=== PATIENT | male | born 1955 | race Caucasian/White ===

== ENCOUNTER 2017-02-07 03:35 | Emergency (ER) | payer MEDICAID ==
[~2017-02-07] VITALS: Ht 177.8 cm; Wt 61.2 kg
[2017-02-07 04:28] LABS: Basophils # (auto) 0.1 uL; Basophils % (auto) 1.2 % (0.0-2.0); CONDITION Y; Eosinophils # (auto) 0 uL; Eosinophils % (auto) 0.3 % (0.0-7.0); Hemoglobin 15.4 g/dL (13.5-17.5); Lymphocytes # (auto) 1.3 uL; Lymphocytes % (auto) 20.8 % (10.0-50.0); Mean Corpuscular Hemoglobin 31.4 pg (28.0-32.0); Mean Corpuscular Hgb Conc. 34.3 g/dL (32.0-36.0); Mean Corpuscular Volume 91.3 fL (80.0-100.0); Mean Platelet Volume 7.5 fL (7.4-10.4); Monocytes # (auto) 0.4 uL; Monocytes % (auto) 5.9 % (0.0-12.0); Neutrophils # (auto) 4.4 uL; Neutrophils % (auto) 71.8 % (37.0-80.0); Platelet Count (auto) 242 10^3/uL (140-450); White Blood Cell 6.2 10^3/uL (4.4-10.8)
[2017-02-07 04:32] LABS: Urine Bilirubin Negative (Negative); Urine Blood TRACE /uL (Negative); Urine Color Yellow (Yellow); Urine Glucose Normal (Normal); Urine Ketone Negative (Negative); Urine Mucus FEW (None Seen); Urine Nitrite Negative (Negative); Urine RBC 5 /hpf (0 - 3); Urine Squamous Epithelial Cell FEW /hpf (<5); Urine Urobilinogen Normal (Negative); Urine pH 6.5 (5.0-8.0)
[2017-02-07 04:51] LABS: Albumin 3.6 g/dL (3.4-5.0); Amylase 31 U/L (25-115); Anion Gap 8 (5-15); Aspartate Aminotransferase 27 U/L (15-37); BUN/Creatinine Ratio 12.9; Blood Urea Nitrogen 11 mg/dL (7-18); Calcium 7.9 mg/dL (8.5-10.1); Carbon Dioxide 22 mmol/L (21-32); Chloride 105 mmol/L (98-107); GFR African American 119 mL/min; GFR Non-African American 98 mL/min; Glucose 98 mg/dL (74-106); Magnesium 2.3 mg/dL (1.6-2.6); Potassium 3.9 mmol/L (3.5-5.1); Sodium 135 mmol/L (136-145)
[2017-02-07 04:56] LABS: Alkaline Phosphatase 76 U/L (45-117); Bilirubin, Total 0.2 mg/dL (0.2-1.0)
[2017-02-07] MEDS ORDERED: MORPHINE SULF INJ 2 MG/ML SYRINGE 1ML IV ONE (07:00)
[2017-02-07] MEDS ORDERED: ONDANSETRON HCL 4 MG/2 ML VIAL IV ONE (07:00)
[2017-02-07] MEDS ORDERED: PANTOPRAZOLE 40 MG/10 ML VIAL IV ONE (07:00)
[2017-02-07] MEDS ORDERED: LIDOCAINE VISCOUS 2% 15ML UD PO ONE (07:00)
[2017-02-07] MEDS ORDERED: DONNATAL 5ml ORAL Elix (BELLADONNA ALK-PHENOBARB) PO ONE (07:00)
[2017-02-07] MEDS ORDERED: ALUM & MAG HYDROX-SIMETH LIQ(MAALOX) 30 ML PO ONE (07:00)
[2017-02-07] MEDS ORDERED: SODIUM CHLORIDE 0.9% 1,000 ML IV ONE (07:00)
[2017-02-07 08:11] VITALS: BP 127/80
== END 2017-02-07 09:09 | disposition home or self-care (01) ==
LOC: ER 03:35
DX: K52.9 Noninfective gastroenteritis and colitis, unspecified (principal); F17.210 Nicotine dependence, cigarettes, uncomplicated; G89.29 Other chronic pain; M54.5 Low back pain
CPT/HCPCS: 36415; 71020; 74176; 80053; 80307; 80320; 81001; 82150; 83690; 83735; 84484; 85025; 93005; 96361; 96374; 96375; 99285; C9113; J2270; J2405; J7030

== ENCOUNTER 2017-09-26 16:52 | Emergency (ER) | payer MEDICAID ==
[~2017-09-26] VITALS: Ht 170.2 cm; Wt 68.0 kg
[2017-09-26] MEDS ORDERED: NIMODIPINE 30 MG CAP PO ONE (18:15)
[2017-09-26] MEDS ORDERED: DEXAMETHASONE SOD PHOS 10MG/1ML VIAL INJ IV ONE (18:15)
[2017-09-26] MEDS ORDERED: MANNITOL 20% SOLN 100 gm/500ml 250 ML IV ONE (18:15)
[2017-09-26 18:36] LABS: Basophils # (auto) 0.1 uL; Basophils % (auto) 1.2 % (0.0-2.0); Eosinophils # (auto) 0.3 uL; Eosinophils % (auto) 2.8 % (0.0-7.0); Hemoglobin 14.7 g/dL (13.5-17.5); Lymphocytes % (auto) 19.3 % (10.0-50.0); Mean Corpuscular Hemoglobin 30.8 pg (28.0-32.0); Mean Corpuscular Hgb Conc. 33.3 g/dL (32.0-36.0); Mean Corpuscular Volume 92.3 fL (80.0-100.0); Monocytes # (auto) 0.6 uL; Monocytes % (auto) 5.8 % (0.0-12.0); Neutrophils # (auto) 7.3 uL; Neutrophils % (auto) 70.9 % (37.0-80.0); Nucleated Red Blood Cells % 0.1 %; Platelet Count (auto) 275 10^3/uL (140-450); Red Blood Cells 4.77 10^6/uL (4.5-5.90); Red Cell Distribution Width 14.1 % (11.8-14.3); White Blood Cell 10.4 10^3/uL (4.4-10.8)
[2017-09-26] MEDS ORDERED: ONDANSETRON HCL 4 MG/2 ML VIAL ONE (18:38)
[2017-09-26] MEDS ORDERED: ONDANSETRON HCL 4 MG/2 ML VIAL IV ONE (18:45)
[2017-09-26] MEDS ORDERED: LEVETIRACETAM INJ 1,000 MG in D5W 5% 100 ML IV ONE (18:45)
[2017-09-26] MEDS ORDERED: MORPHINE SULFATE 4 MG/ML SYR/VIAL IV ONE (18:45)
[2017-09-26 18:49] LABS: Albumin 4.2 g/dL (3.4-5.0); Anion Gap 6 (5-15); BUN/Creatinine Ratio 14.4; Blood Alcohol < 3.0 mg/dL (0-5); Blood Urea Nitrogen 14 mg/dL (7-18); Carbon Dioxide 24 mmol/L (21-32); Chloride 111 mmol/L (98-107); GFR African American 102 mL/min; GFR Non-African American 84 mL/min; Glucose 93 mg/dL (74-106); INR 0.98 (0.9-1.15); Partial Thromboplastin Time 26.6 sec (22.64-33.71); Potassium 4.1 mmol/L (3.5-5.1); Prothrombin Time 10.7 sec (9.37-12.3); Sodium 141 mmol/L (136-145)
[2017-09-26 19:01] LABS: Alanine Aminotransferase 33 U/L (16-61); Alkaline Phosphatase 61 U/L (45-117); Aspartate Aminotransferase 32 U/L (15-37); Bilirubin, Total 0.5 mg/dL (0.2-1.0); Total Protein 7.3 g/dL (6.4-8.2)
[2017-09-26] MEDS ORDERED: ACETAMINOPHEN 500 MG TAB PO ONE (20:30)
[2017-09-26 21:19] LABS: Alcohol, Urine < 3.0 mg/dL (0-5); Amphetamine Screen, Urine POSITIVE (NEGATIVE); Barbiturate Scree,Urine NEGATIVE (NEGATIVE); Benzodiazephine Screen, Urine NEGATIVE (NEGATIVE); Cannabinoid Screen, Urine NEGATIVE (NEGATIVE); Cocaine Screen, Urine NEGATIVE (NEGATIVE); Opiate Scree,Urine NEGATIVE (NEGATIVE); Phencyclidine Screen, Urine NEGATIVE (NEGATIVE)
[2017-09-26 21:28] VITALS: BP 137/104
== END 2017-09-26 21:43 | disposition short-term general hospital (02) ==
LOC: ER 16:52 → EDBD 16:52 → ER 21:43
DX: S06.6X0A Traumatic subarachnoid hemorrhage without loss of consciousness, initial encounter (principal); F17.210 Nicotine dependence, cigarettes, uncomplicated; W19.XXXA Unspecified fall, initial encounter; Y93.89 Activity, other specified; Y99.8 Other external cause status; Y92.89 Other specified places as the place of occurrence of the external cause
CPT/HCPCS: 36415; 70450; 72125; 80053; 80307; 80320; 85025; 85610; 85730; 93005; 96365; 96366; 96367; 96375; 99285; J1100; J1953; J2405; J7060

== ENCOUNTER 2017-10-01 23:51 | Emergency (ER) | payer MEDICAID ==
[~2017-10-01] VITALS: Ht 180.3 cm; Wt 77.1 kg
[2017-10-02] MEDS ORDERED: MORPHINE SULFATE 4 MG/ML SYR/VIAL IV ONE (01:15)
[2017-10-02] MEDS ORDERED: DEXAMETHASONE SOD PHOS 10MG/1ML VIAL INJ IV ONE (01:15)
[2017-10-02] MEDS ORDERED: NIMODIPINE 30 MG CAP PO ONE (01:15)
[2017-10-02] MEDS ORDERED: MANNITOL 20% SOLN 100 gm/500ml 250 ML IV ONE (01:15)
[2017-10-02] MEDS ORDERED: MANNITOL 20 % (20GM/100ML) 500 ML IV ONE (01:29)
[2017-10-02] MEDS ORDERED: ONDANSETRON HCL 4 MG/2 ML VIAL IV ONE (01:30)
[2017-10-02 01:37] LABS: Basophils # (auto) 0 uL; Basophils % (auto) 0.4 % (0.0-2.0); Eosinophils # (auto) 0.1 uL; Eosinophils % (auto) 0.9 % (0.0-7.0); Hematocrit 44.8 % (41.0-53.0); Mean Corpuscular Hemoglobin 31.2 pg (28.0-32.0); Mean Corpuscular Hgb Conc. 33.5 g/dL (32.0-36.0); Mean Corpuscular Volume 93.2 fL (80.0-100.0); Monocytes % (auto) 10.2 % (0.0-12.0); Neutrophils # (auto) 7.8 uL; Neutrophils % (auto) 78.5 % (37.0-80.0); Platelet Count (auto) 258 10^3/uL (140-450); White Blood Cell 9.9 10^3/uL (4.4-10.8)
[2017-10-02 01:53] LABS: Albumin 3.1 g/dL (3.4-5.0); BUN/Creatinine Ratio 36.7; Potassium 4.3 mmol/L (3.5-5.1)
[2017-10-02 01:56] LABS: Bilirubin, Total 0.4 mg/dL (0.2-1.0); Total Protein 7.2 g/dL (6.4-8.2)
[2017-10-02 03:09] LABS: INR 0.95 (0.9-1.15); Prothrombin Time 10.3 sec (9.37-12.3)
[2017-10-02 06:02] VITALS: BP 146/67
== END 2017-10-02 06:20 | disposition home or self-care (01) ==
LOC: EDBD 23:51 → ER 23:51
DX: S06.6X0A Traumatic subarachnoid hemorrhage without loss of consciousness, initial encounter (principal); R42 Dizziness and giddiness; R53.1 Weakness; F17.210 Nicotine dependence, cigarettes, uncomplicated; X58.XXXA Exposure to other specified factors, initial encounter; Y93.89 Activity, other specified; Y92.89 Other specified places as the place of occurrence of the external cause; Y99.8 Other external cause status
CPT/HCPCS: 36415; 70450; 80053; 85025; 85610; 85730; 93005; 94761; 96365; 96375; 99285; J1100; J2270; J2405